=== PATIENT | female | born 1995 | race Two or more races ===

== ENCOUNTER 2025-01-22 08:49 | Emergency (ER) | payer MEDICAID, OTHER ==
[~2025-01-22] VITALS: Ht 154.9 cm; Wt 55.3 kg
--- NOTE | 2025-01-22 08:55 | ECG ---
[facility] Test Date: 2025-01-22 Test Time: 08:53:24 Pat Name: ARMANI COKER Department: ED Room: Gender: F Bird Tender: anna : 1995 Requested By: EMERGENCY EMERGENCY Order Number: [id number] Reading MD: Eagle Hernandez Measurements Intervals [place] Rate: 79 P: 86 [place]: 154 QRS: 82 QRSD: 73 T: -54 QT: 354 QTc: 406 Interpretive Statements Sinus rhythm Probable left atrial enlargement Nonspecific T abnormalities, diffuse leads Electronically Signed On 01-23-2025 15:46:05 PST by Eagle Hernandez Please click the below link to view image of tracing.
--- NOTE | 2025-01-22 09:16 | ED.PDOC ---
HPI Comments This is a 29 year old female presenting to the ED with chief complaint of chest pain. Patient reports that she had started to experience substernal, 8/10 chest pain with associated palpitations last night around 7pm, lasting 5 hours before resolving. Patient relays that she had also woke up this morning with nausea. Patient states she has no chest pain at this time. Patient notes that she has had similar pain in the past. Patient reports that she took Tums and Tylenol wit h no relief in pain. Patient denies any vomiting, diarrhea, abdominal pain, SOB, dizziness, fever, or chills. Chief Complaint: Chest Pain Time Seen by MD: 09:13 Reviewed Notes: Nurses Notes, Medications, Allergies Information Source: Patient Mode of Arrival: Ambulatory Severity: Moderate Timing: Hours Duration: Hours Prehospital treatment: None Location: Substernal Radiation: No Radiation Quality: Sharp Onset: At Rest Cardiac Risk Factors: None PE Risk Factors: None History of: Similar pain in past Past Medical History PAST MEDICAL HISTORY: Denies Surgical History (Other): Nasal surgery [employer] History: No Pertinent [employer]MENT [employer]ER History Family History Family History (Other): Thyroid Social History Smoker: Non-Smoker Alcohol: Denies ETOH Use Drugs: Denies Drug Use Lives In: Home Constitutional: denies: chills, diaphoresis, fatigue, fever, malaise, sweats, weakness, others EENTM: denies: blurred vision, double vision, ear bleeding, ear discharge, ear drainage, ear pain, ear ringing, eye pain, eye redness, hearing loss, mouth pain, mouth swelling, nasal discharge, nose bleeding, nose congestion, nose pain, photophobia, tearing, throat pain, throat swelling, voice changes, others Respiratory: denies: cough, hemoptysis, orthopnea, SOB at rest, shortness of breath, SOB with excertion, stridor, wheezing, others Cardiovascular: reports: chest pain, palpitations; denies: dizzy spells, diaphoresis, Dyspnea on exertion, edema, irregular heart beat, left arm pain, lightheadedness, PND, syncope, others Gastrointestinal: reports: nausea; denies: abdomen distended, abdominal pain, blood streaked bowels, constipated, diarrhea, dysphagia, difficulty swallowing, hematemesis, melena, poor appetite, poor fluid intake, rectal bleeding, rectal pain, vomiting, others Genitourinary: denies: abnormal vagina bleeding, burning, dyspareunia, dysuria, flank pain, frequency, hematuria, incontinence, pain, , vagina discharge, urgency, others Neurological: denies: dizziness, fainting, headache, left sided numbness, left sided weakness, numbness, paresthesia, pre-existing deficit, right sided numbness, right sided weakness, seizure, speech problems, tingling, tremors, weakness, others Musculoskeletal: denies: back pain, gout, joint pain, joint swelling, muscle pain, muscle stiffness, neck pain, others Integumetry: denies: bruises, change in color, change in hair/nails, dryness, laceration, lesions, lumps, rash, wounds, others Allergic/Immunocompromised: denies: Difficulty Healing, Frequent Infections, Hives, Itching, others Hematologic/Lymphatic: denies: anemia, blood clots, easy bleeding, easy bruising, swollen glands, others Endocrine: denies: excessive hunger, excessive sweating, excessive thirst, excessive urination, flushing, intolerance to cold, intolerance to heat, unexplained weight gain, unexplained weight loss, others Psychiatric: denies: anxiety, bipolar disorder, depression, hopeless, panic disorder, schizophrenia, sleepless, suicidal, others All Other Systems: Reviewed and Negative EKG EKG : Pulse Rate (adult): 79 [place]: Normal Cardiac Rhythm: NSR Block: None Hypertrophy: LAE ST: Normal Was a procedure done? Was a procedure done?: No X-Ray, Labs, Meds, VS Vital Signs Date Time Temp Pulse Resp B/P (MAP) Pulse Ox O2 Delivery O2 Flow Rate FiO2 01/22/25 08:55 97.8 90 16 130/74 100 97.8 01/22/25 08:53 79 Reevaluation 1ST: Unchanged Patient Education/Counseling: Diagnosis, Treatment Family Education/Counseling: No Family Present SEPSIS Sepsis Screen Date sepsis recognized/suspect: Jan 22, 2025 Time Sepsis recognized/suspect: 09 Recent Procedure: No On Antibiotic Therapy: No Respiratory Rate >20: No Heart Rate >90: No Temp<36 C (96.8 F) or >38.3 C: No SBP <90 or MAP <65 mmHG: No New Acute Mental Status Change: No Is the patient on CPAP, BIPAP,: No Physician Orders Complete Blood Count (01/22/25 08:52) Chest Portable (01/22/25 08:52) Troponin-I Hs (01/22/25 08:52) Troponin-I Hs (01/22/25 09:52) Troponin-I Hs (01/22/25 11:52) Electrocardigram (01/22/25 09:52) Electrocardigram (01/22/25 11:52) Test, Urine (01/22/25 08:52) Basic Metabolic Panel (01/22/25 08:52) Vital Signs Date Time Temp Pulse Resp B/P (MAP) Pulse Ox O2 Delivery O2 Flow Rate FiO2 01/22/25 08:55 97.8 90 16 130/74 100 97.8 01/22/25 08:53 79 Critical Care Note Critical Care Time?: No Stability Stability form required: No Heart Score Heart Score: Heart Score Response (Comments) Value History Moderate Suspicious 1 EKG Normal 0 Age <45 0 Risk Factors No known risk factors 0 Total 1 I personally scribed for MAMADOU JANE MD ([email or web address]) on 01/22/25 at 09:16. Electronically submitted by Wilbur Ellsworth ([email or web address]). MAMADOU JANE MD Jan 22, 2025 09:16
[2025-01-22 09:47] LABS: Chloride 106 mmol/L (98-107); Sodium 140 mmol/L (136-145)
[2025-01-22 09:49] LABS: Anion Gap 9 (5-15); Calcium 9.3 mg/dL (8.7-10.4); Carbon Dioxide 25 mmol/L (20-31)
[2025-01-22 09:54] LABS: BUN/Creatinine Ratio 13.3 (10.0-20.0); Blood Urea Nitrogen 10 mg/dL (9-23); Glucose 87 mg/dL (74-106); Hematocrit 38.9 % (36.0-46.0); Hemoglobin 13.2 g/dL (12.2-16.2); Mean Corpuscular Hemoglobin 29.6 pg (28.0-32.0); Mean Corpuscular Volume 87.5 fL (80.0-100.0); Nucleated Red Blood Cells % 0.0 %; Potassium 3.4 mmol/L (3.5-5.1)
--- NOTE | 2025-01-22 12:36 | DVH ---
EXAM: XY CHEST PORTABLE Indication: CP Technique: Single frontal view of the chest was obtained Comparison: None FINDINGS: Lines and Tubes: None Lungs: No focal consolidation. Pleura: No effusion. No pneumothorax. Cardiomediastinal contours: Unremarkable Bones: No acute osseous abnormality. IMPRESSION: No acute cardiopulmonary disease.
[2025-01-22 15:02] VITALS: BP 108/68; PULSE 70; RESP 16; TEMP 98.1; O2SAT 98
== END 2025-01-22 15:05 | disposition home or self-care (01) ==
LOC: ER 08:49
DX: R07.89 Other chest pain (principal); R00.2 Palpitations; Z79.899 Other long term (current) drug therapy
CPT/HCPCS: 36415; 71045; 80048; 81025; 84484; 85025; 93005